=== PATIENT | female | born 1950 | race Caucasian/White ===

== ENCOUNTER → 2023-10-25 | Emergency (ER) | payer OTHER, BC ==
[~2023-10-25] MED LIST: KETOROLAC 30 MG/ML INJ ONE; ONDANSETRON 4 MG/2 ML VIAL ONE
--- NOTE | 2023-10-25 15:19 | RAD REPORT ---
EXAM DESCRIPTION: Shania Single View10/25/2023 3:06 pm CLINICAL HISTORY: epigastric pain;Cough COMPARISON: No comparisons TECHNIQUE: Portable AP view of the chest. FINDINGS: The lungs are clear. No pneumothorax or effusion. The cardiomediastinal contours are unre markable. IMPRESSION: No acute cardiopulmonary process.
--- NOTE | 2023-10-25 15:30 | RAD REPORT ---
EXAM DESCRIPTION: US - Abdomen Exam Limited - 10/25/2023 2:52 pm CLINICAL HISTORY: EPIGASTRIC PAIN COMPARISON: No comparisons TECHNIQUE: Sonographic grayscale and color flow images of the right upper abdominal quadrant were o btained. FINDINGS: The gallbladder demonstrates no gallstones. Small fold noted at the fundus. No pericholecy stic fluid or gallbladder wall thickening. The common bile duct is normal measuring 5mm. The liver demonstrates no findings of intrahepatic biliary dilatation. IMPRESSION: Unremarkable examination.
[2023-10-25 15:41] LABS: Absolute Lymphocytes (CBC) 1.1 K/uL (0.7-4.9); Hematocrit 41.2 % (36.0-45.0); Lymphocytes % 20.2 % (15.3-44.8); MCV 91.2 fL (80-100); Platelets 235 thou/uL (152-406); RBC Red Blood Cell Count 4.52 M/uL (3.86-4.86)
[2023-10-25 15:46] LABS: Protime INR 1.07
[2023-10-25 16:02] LABS: Albumin 3.8 g/dL (3.4-5.0); Bilirubin Direct 0.1 mg/dL (0-0.2); Bilirubin Indirect, Calculated 0.2 mg/dL (0.2-0.8); Bilirubin Total 0.3 mg/dL (0.2-1.0); Magnesium 2.4 mg/dL (1.6-2.4); Potassium 3.8 mEq/L (3.5-5.1); Protein, Total 7.4 g/dL (6.4-8.2); Troponin High Sensitivity 5.8 pg/mL (<58.9)
--- NOTE | 2023-10-25 17:10 | RAD REPORT ---
EXAM DESCRIPTION: CT - Chest For Pe Angio - 10/25/2023 4:33 pm CLINICAL HISTORY: back pain;Cough COMPARISON: No comparisons TECHNIQUE: Thin axial CT images of the chest were obtained following administration of 95 mL Isovue 370 IV contrast. Multiplanar reconstructions, and maximum intensity projection reconstructions were g enerated and reviewed. Exam utilizes a protocol for optimal evaluation of pulmonary arterial tree. All CT scans are performed using dose optimization technique as appropriate and may include automated exposure control or mA/KV adjustment according to patient size. FINDINGS: Pulmonary arteries are normal. No emboli or other suspicious finding. No acute or signific ant aorta findings. No mass or infiltrate in the lung parenchyma. Subsegmental platelike opacification more so on the rig ht lower lobe. Rounded 5-6 mm peripheral right lower lobe calcified granuloma. No pleural thickening or pleural effusion. No pneumothorax. No abnormal mediastinal or hilar masses or lymphadenopathy seen. No chest wall mass or abnormal axill iary lymphadenopathy. Sequelae of right total mastectomy and axillary dissection. IMPRESSION: No evidence of acute central pulmonary emboli. No other acute pulmonary process. Incidental findings as above. .
--- NOTE | 2023-10-25 17:26 | RAD REPORT ---
EXAM DESCRIPTION: CT - Abdomen Pelvis W Contrast - 10/25/2023 4:33 pm CLINICAL HISTORY: EPIGASTRIC PAIN COMPARISON: Chest For Pe Angio dated 10/25/2023 TECHNIQUE: Thin cut axial CT imaging of the abdomen and pelvis was performed following intravenous a dministration of 95 mL Isovue 370. Multiplanar reformats were generated and reviewed. All CT scans are performed using dose optimization technique as appropriate and may include automated exposure control or mA/KV adjustment according to patient size. FINDINGS: No suspicious findings in the lung bases. The liver, spleen, adrenal glands, and pancreas show no suspicious findings. Gallbladder and biliary tree are also without suspicious finding. Symmetric renal function is seen with no hydronephrosis or suspicious renal mass. Small left parapelv ic cysts. No dilated bowel loops or bowel wall thickening. No free air, free fluid or inflammatory stranding. N o hernia, mass or bulky lymphadenopathy. The urinary bladder is without significant finding. No suspicious bony findings. IMPRESSION: No acute intra-abdominal process.
--- NOTE | 2023-10-25 19:32 | EDPHYS ---
Physician Documentation [facility] Name: Radha Azevedo Age: 73 yrs Sex: Female : 1950 Arrival Date: 10/25/2023 Time: 13:56 Bed 10 Private MD: ED Physician Bennie Neff HPI: 10/25 14:20 This 73 yrs old Female presents to ER via Ambulatory with complaints of Chest Pain, cp Middle back pain. 14:20 The patient presents with pain that is acute, with no known mechanism of injury. The cp symptoms are located in the left subscapular area, right subscapular area and mid back area. Onset: The symptoms/episode began/occurred 1 week(s) ago. Associated signs and symptoms: Pertinent positives: epigastric and lower chest pain that started yesterday, Pertinent negatives: fever, weakness. 14:20 The problem was sustained from unknown cause. Modifying factors: the patient symptoms cp are aggravated by movement. 14:20 Severity of symptoms: in the emergency department the symptoms are unchanged, despite cp home interventions. Historical: - Allergies: 14:04 Amoxicillin; ap3 - PMHx: 14:04 breast cancer; ap3 - PSHx: 14:04 cardiac stents; mastectomy-right; ap3 - Immunization history:: Client reports receiving the 2nd dose of the Covid vaccine, Flu vaccine is not up to date. - Social history:: Smoking status: Patient denies any tobacco usage or history of. ROS: 14:25 Constitutional: Negative for body aches, chills, fever, poor PO intake, cp 14:25 Eyes: Negative for injury, pain, redness, and discharge, cp 14:25 ENT: Negative for drainage from ear(s), ear pain, sore throat, difficulty swallowing, difficulty handling secretions, 14:25 Cardiovascular: Positive for chest pain, Negative for edema, palpitations, 14:25 Respiratory: Positive for cough, Negative for shortness of breath, wheezing, 14:25 Abdomen/GI: Positive for abdominal pain, of the epigastric area, Negative for vomiting, diarrhea, constipation, 14:25 Back: Positive for pain at rest, pain with movement, of the left subscapular area, right subscapular area and mid back area, 14:25 Neuro: Negative for altered mental status, dizziness, headache, syncope, weakness, 14:25 All other systems are negative, Exam: 14:22 ECG was reviewed by the Attending Physician. cp 14:30 Constitutional: The patient appears in no acute distress, alert, awake, comfortable, cp non-diaphoretic, non-toxic, well developed, well nourished, 14:30 Head/Face: Normocephalic, atraumatic. cp 14:30 Eyes: Periorbital structures: appear normal, Conjunctiva: normal, no exudate, no injection, Sclera: no appreciated abnormality, Lids and lashes: appear normal, bilaterally, 14:30 ENT: External ear(s): are unremarkable, Nose: is normal, Mouth: Lips: moist, Oral mucosa: pink and intact, moist, Posterior pharynx: Airway: no evidence of obstruction, patent, 14:30 Neck: ROM/movement: is normal, is supple, without pain, no range of motions limitations, 14:30 Chest/axilla: Inspection: normal, 14:30 Cardiovascular: Rate: normal, Rhythm: regular, Edema: is not appreciated, JVD: is not appreciated, 14:30 Respiratory: the patient does not display signs of respiratory distress, Respirations: normal, no use of accessory muscles, no retractions, labored breathing, is not present, Breath sounds: are clear throughout, no decreased breath sounds, no stridor, no wheezing, 14:30 Abdomen/GI: Inspection: abdomen appears normal, Bowel sounds: active, all quadrants, Palpation: soft, in all quadrants, mild abdominal tenderness, in the epigastric area, rebound tenderness, is not appreciated, involuntary guarding, is not appreciated, 14:30 Back: pain, that is mild, of the left subscapular area, right subscapular area and mid back area, ROM is normal, 14:30 Neuro: Orientation: to person, place \T\ time. Mentation: is normal, Motor: moves all fours, strength is normal, Gait: is steady, Vital Signs: 14:03 BP 146 / 85; Pulse 68; Resp 17; Temp 97.5; Pulse Ox 98% ; Weight 79.38 kg; Height 5 ft. ap3 5 in. ; Pain 5/10; 17:23 BP 173 / 55; Pulse 61; Pulse Ox 99% ; jg11 20:00 BP 159 / 73; Pulse 65; Resp 16; Pulse Ox 100% ; Pain 0/10; nj1 14:03 Body Mass Index 29.12 (79.38 kg, 165.1 cm) ap3 14:03 Pain Scale: Adult ap3 20:00 Pain Scale: Adult nj1 MDM: 14:19 Patient medically screened. 15:00 Differential diagnosis: Abdominal Aortic Aneurysm Basilar Pneumonia Cholelithiasis cp Peptic Ulcer Perforated Ulcer Pyelonephritis Ureterolithiasis pancreatitis. 19:30 Data reviewed: vital signs, nurses notes, lab test result(s), EKG, radiologic studies, cp CT scan, plain films. 19:30 I considered the following discharge prescriptions or medication management in the emergency department Medications were administered in the Emergency Department. See MAR. Independent interpretation of the following test(s) in the Emergency Department EKG: See my EKG interpretation above. Care significantly affected by the following chronic conditions: Cancer. 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 Response to treatment: the patient's symptoms have markedly improved after treatment, and as a result, I will discharge patient. Special discussion: Based on the patient's history, exam, and Dx evaluation, there is no indication for emergent intervention or inpatient Tx. It is understood by the patient/guardian that if the Sx's persist or worsen they need to return immediately for re-evaluation. Based on the patient's Hx, exam, and Dx evaluation, there is no indication for emergent surgery or inpatient Tx. It is understood by the patient/guardian that if the Sx's persist or worsen they need to return immediately for re-evaluation. 10/25 14:13 Order name: Basic Metabolic Panel; Complete Time: 16:26 10/25 16:26 Interpretation: Normal except: ANION GAP 4.8; GFR 85. 10/25 14:13 Order name: CBC with Diff; Complete Time: 15:46 10/25 15:46 Interpretation: Reviewed. 10/25 14:13 Order name: LFT's; Complete Time: 16:26 cp 10/25 16:26 Interpretation: Normal except: GLOB 3.6. cp 10/25 14:13 Order name: Magnesium; Complete Time: 16:26 cp 10/25 14:13 Order name: NT PRO-BNP; Complete Time: 16:26 cp 10/25 14:13 Order name: PT-INR; Complete Time: 15:46 cp 10/25 14:13 Order name: Troponin HS; Complete Time: 16:26 cp 10/25 14:13 Order name: Lipase; Complete Time: 16:26 cp 10/25 17:50 Interpretation: Reviewed. cp 10/25 14:13 Order name: XRAY Chest (1 view); Complete Time: 15:46 cp 10/25 15:46 Interpretation: Report review. cp 10/25 14:13 Order name: US Abdomen Limited: gallbladder; Complete Time: 15:46 cp 10/25 15:47 Interpretation: Report reviewed. cp 10/25 15:48 Order name: CT Chest For PE Angio; Complete Time: 17:49 cp 10/25 15:48 Order name: CT Abd/Pelvis - IV Contrast Only; Complete Time: 17:49 cp 10/25 14:13 Order name: EKG; Complete Time: 14:14 cp 10/25 14:13 Order name: Cardiac monitoring; Complete Time: 18:50 cp 10/25 14:13 Order name: EKG - Nurse/Tech; Complete Time: 14:16 cp 10/25 14:13 Order name: IV Saline Lock; Complete Time: 16:59 cp 10/25 14:13 Order name: Labs collected and sent; Complete Time: 16:59 cp 10/25 14:13 Order name: O2 Per Protocol; Complete Time: 16:59 cp 10/25 14:13 Order name: O2 Sat Monitoring; Complete Time: 16:59 cp 10/25 14:13 Order name: NPO; Complete Time: 14:16 cp EC:22 Rate is 63 beats/min. Rhythm is regular. DC interval is normal. QRS interval is normal. cp QT interval is normal. T waves are Inverted in lead aVR. Interpreted by me. Reviewed by me. Administered Medications: 17:04 Drug: Ondansetron IVP 4 mg IVP once; over 2 minutes Route: IVP; Site: left antecubital; hb 18:32 Follow up: Response: No adverse reaction ap3 17:04 Drug: Ketorolac IVP 15 mg IVP once Route: IVP; Site: left antecubital; hb 18:33 Follow up: Response: No adverse reaction ap3 Disposition Summary: 10/25/23 19:32 Discharge Ordered Notes: Location: Home cp Problem: new cp Symptoms: have improved cp Condition: Stable cp Diagnosis - Dorsalgia, unspecified cp - Epigastric pain cp - Chest pain, unspecified cp Followup: cp - With: Simone Gonzalez MD - When: 1 week - Reason: Recheck today's complaints Discharge Instructions: - Abdominal Pain, Adult cp - Acute Back Pain, Adult cp - Nonspecific Chest Pain, Adult cp - Discharge Summary Sheet ap3 Forms: - Medication Reconciliation Form cp - Thank You Letter cp - Antibiotic Education cp - Prescription Opioid Use cp - Patient Portal Instructions cp - Leadership Thank You Letter cp - SBAR form ap3 Prescriptions: - Protonix 40 mg Oral Tablet - take 1 tablet ORAL route once daily; 30 tablet; Refills: 0, Product Selection cp Permitted Addendum: 10/27/2023 07:17 Co-signature as Attending Physician, Bennie Neff MD I reviewed the patient's care r n provided by the Advanced Practice Provider and agree with the diagnosis and treatment plan. Signatures: Dispatcher [employer] EDBennie Pugh MD MD rn Page, Corey, PA PA cp [place] Beckett RN RN hb Prokisch, Amanda, RN RN ap3 Corrections: (The following items were deleted from the chart) 10/26 06:06 10/25 14:20 Associated signs and symptoms: Pertinent positives: epigastric and lower cp chest pain, Pertinent negatives: fever, weakness, cp
--- NOTE | 2023-10-25 19:32 | ER ---
Nurse's Notes [facility] Name: Radha Azevedo Age: 73 yrs Sex: Female : 1950 Arrival Date: 10/25/2023 Time: 13:56 Bed 10 Private MD: Diagnosis: Dorsalgia, unspecified;Epigastric pain;Chest pain, unspecified Presentation: 10/25 14:03 Chief complaint: Patient states: she started having chest pain that radiates into her ap3 back yesterday 10/24/2023. patient rates the pain as a 5/10 at this time. patient denies nausea, vomiting and shortness of breath at this time. Coronavirus screen: At this time, the client does not indicate any symptoms associated with coronavirus-19. Ebola Screen: No symptoms or risks identified at this time. Initial Sepsis Screen: Does the patient meet any 2 criteria? No. Patient's initial sepsis screen is negative. Does the patient have a suspected source of infection? No. Patient's initial sepsis screen is negative. Risk Assessment: Do you want to hurt yourself or someone else? Patient reports no desire to harm self or others. Onset of symptoms was October 24, 2023. 14:03 Method Of Arrival: Ambulatory ap3 14:03 Acuity: VENKAT 2 ap3 Triage Assessment: 14:05 General: Appears in no apparent distress. Behavior is calm, cooperative, appropriate ap3 for age. Pain: Complains of pain in chest Pain radiates to back Pain currently is 5 out of 10 on a pain scale. Pain began gradually, 1 day ago. Neuro: Level of Consciousness is awake, alert, obeys commands, Oriented to person, place, time, situation, Appropriate for age. Cardiovascular: Patient's skin is warm and dry. Cardiovascular: Reports chest pain. Respiratory: Airway is patent Respiratory effort is even, unlabored, Respiratory pattern is regular, symmetrical. Historical: - Allergies: 14:04 Amoxicillin; ap3 - PMHx: 14:04 breast cancer; ap3 - PSHx: 14:04 cardiac stents; mastectomy-right; ap3 - Immunization history:: Client reports receiving the 2nd dose of the Covid vaccine, Flu vaccine is not up to date. - Social history:: Smoking status: Patient denies any tobacco usage or history of. Screenin:06 [facility] ED Fall Risk Assessment (Adult) History of falling in the last 3 months, ap3 including since admission No falls in past 3 months (0 pts). Abuse screen: Denies threats or abuse. Nutritional screening: No deficits noted. Tuberculosis screening: No symptoms or risk factors identified. Assessment: 17:10 Reassessment: Patient appears in no apparent distress at this time. Patient and/or hb family updated on plan of care and expected duration. Pain level reassessed. Patient is alert, oriented x 3, equal unlabored respirations, skin warm/dry/pink. 20:00 Reassessment: Patient appears in no apparent distress at this time. Patient is alert, nj1 oriented x 3, equal unlabored respirations, skin warm/dry/pink. Patient denies pain at this time. Patient states feeling better. Patient states symptoms have improved. Vital Signs: 14:03 BP 146 / 85; Pulse 68; Resp 17; Temp 97.5; Pulse Ox 98% ; Weight 79.38 kg; Height 5 ft. ap3 5 in. ; Pain 5/10; 17:23 BP 173 / 55; Pulse 61; Pulse Ox 99% ; jg11 20:00 BP 159 / 73; Pulse 65; Resp 16; Pulse Ox 100% ; Pain 0/10; nj1 14:03 Body Mass Index 29.12 (79.38 kg, 165.1 cm) ap3 14:03 Pain Scale: Adult ap3 20:00 Pain Scale: Adult nj1 ED Course: 13:59 Patient arrived in ED. im 14:04 Triage completed. ap3 14:06 Arm band placed on left wrist. ap3 14:06 Patient maintains SpO2 saturation greater than 95% on room air. ap3 14:08 Silvino Can PA is PHCP. cp 14:08 Bennie Neff MD is Attending Physician. cp 14:15 EKG done, by ED staff, reviewed by Bennie Neff MD. ap3 14:54 US Abdomen Limited: gallbladder In Process Unspecified. EDMS 15:08 XRAY Chest (1 view) In Process Unspecified. EDMS 15:29 Initial lab(s) drawn, by ca, sent to lab. Inserted saline lock: 22 gauge in left jg11 antecubital area, using aseptic technique. Blood collected. 16:35 CT Chest For PE Angio In Process Unspecified. EDMS 16:35 CT Abd/Pelvis - IV Contrast Only In Process Unspecified. EDMS 16:35 Minnie Lee, RN is Primary Nurse. ap3 18:59 Patient has correct armband on for positive identification. Bed in low position. Call ap3 light in reach. attendance clerk on. Pulse ox on. NIBP on. 19:31 Simone Gonzalez MD is Referral Physician. cp 20:00 Provided Education on: discharge instructions. nj1 20:00 No provider procedures requiring assistance completed. nj1 20:00 IV discontinued, intact, bleeding controlled. nj1 Administered Medications: 17:04 Drug: Ondansetron IVP 4 mg IVP once; over 2 minutes Route: IVP; Site: left antecubital; hb 18:32 Follow up: Response: No adverse reaction ap3 17:04 Drug: Ketorolac IVP 15 mg IVP once Route: IVP; Site: left antecubital; hb 18:33 Follow up: Response: No adverse reaction ap3 Medication: 20:09 VIS not applicable for this client. nj1 Outcome: 19:32 Discharge ordered by . cp 20:09 Discharged to home ambulatory, nj1 20:09 Condition: stable 20:09 Discharge instructions given to patient, Instructed on discharge instructions, follow up and referral plans. medication usage, Demonstrated understanding of instructions, follow-up care, medications, Prescriptions given X 1, 20:10 Patient left the ED. nj1 Signatures: Dispatcher [employer] EDOK Silvino Can PA PA cp Indiana Beckett RN RN Minnie Lee RN RN ap3 Jeannette Potter RN RN nj1 Ramona Mcnair Jordan jg11
[2023-10-26 01:01] VITALS: BP 159/73; TEMP 97.5; O2SAT 100
--- NOTE | 2023-10-28 17:01 | EKG ---
Test Date: 2023-10-25 Test Time: 14:13:51 [employer]: ALP MEASUREMENT RESULTS: Intervals: Rate: 63 CA: 140 QRSD: 82 QT: 430 QTc: 440 Rew: P: 2 CA: 140 QRS: -46 T: 49 INTERPRETIVE STATEMENTS: Sinus rhythm with premature atrial complexes Left anterior fascicular block Anterior infarct, age undetermined Abnormal ECG No previous ECG available for comparison Electronically Signed On 10-28-23 16:53:53 ICU MANAGER by Justin Bowers
== END ==
LOC: ER 13:56
DX: R07.9 Chest pain, unspecified (principal); M54.9 Dorsalgia, unspecified; R10.13 Epigastric pain; Z88.0 Allergy status to penicillin; Z95.5 Presence of coronary angioplasty implant and graft; Z85.3 Personal history of malignant neoplasm of breast; Z90.11 Acquired absence of right breast and nipple
CPT/HCPCS: 85025; 80048; 36415; 83735; 85610; 80076; 84484; 83690; 83880; 71275; 74177; 71045; 76705; 96375; 96374; 99285; Q9967; J2405; 93005

== ENCOUNTER 2023-11-21 12:00 | Day surgery (SDC) | payer OTHER, BC ==
[2023-11-20 09:19] LABS: Hematocrit 40.6 % (36.0-45.0); MCV 91.5 fL (80-100); Platelets 220 thou/uL (152-406); RBC Red Blood Cell Count 4.44 M/uL (3.86-4.86)
[2023-11-20 09:29] LABS: Protime INR 1.05
[2023-11-20 09:39] LABS: Potassium 4.2 mEq/L (3.5-5.1)
[2023-11-21] MEDS ORDERED: LIDOCAINE 1% 20 ML MDV ONE (15:38)
[2023-11-21] MEDS ORDERED: VERAPAMIL HCL 10 MG/4 ML VIAL IV ONE (15:38)
[2023-11-21] MEDS ORDERED: HEPA 1000U/500MLS 2,000 UNIT/1,000 ML BAG IV ONE (15:38)
[2023-11-21] MEDS ORDERED: FENTANYL CITR 100 MCG/2 ML ONE (15:39)
[2023-11-21] MEDS ORDERED: MIDAZOLAM HCL 2 MG/2 ML INJ ONE (15:39)
[2023-11-21] MEDS ORDERED: HEPARIN 5000 UNIT/ML 1 ML VIAL ONE (15:41)
[2023-11-21] MEDS ORDERED: REGADENOSON 0.4 MG/5 ML SYR IV ONE (16:26)
[2023-11-21] MEDS ORDERED: CLOPIDOGREL 75 MG TABLET ONE ×2 (17:08→17:14)
[2023-11-21] MEDS ORDERED: ASPIRIN 325 MG TAB ONE (17:09)
[2023-11-21 17:35] VITALS: TEMP 97.8
[2023-11-21 18:35] VITALS: O2SAT 96
[2023-11-21 19:35] VITALS: BP 129/59
--- NOTE | 2023-11-22 01:44 | OP ---
Date of Procedure: 11/21/2023 Surgeon: IESHA MARTIN Procedures Performed: 1.Selective coronary angiogram. 2.Left heart catheterization. 3.FFR of mid LAD, moderate stenosis, it was insignificant of 0.8. 4.PCI of proximal RCA, severe stenosis, used 2.5 x 12 mm Synergy drug-eluting stent. Indication: Chest pain with grossly abnormal stress test. Access: Right radial artery 6-[place], closed with TR band. Complications: None. Bleeding: Less than 50 mL. Anesthesia: Total sedation time was 1 hour. Description Of Procedure: After risks, benefits, and alternatives were explained, the patient agreed to procedure and signed informed consent. The patient was brought into the cardiac catheterization laboratory, prepped and draped in usual sterile fashion. Then, I accessed right radial artery using pediatric micropuncture kit, placed a 6-[place] sheath, took 5-[place] tiger 4 catheter into a ortic root, over a J-wire, across aortic valve, measured LVEDP. Pullback did not record any gradient and then engaged left main, took standard views, and then the RCA, took standard views and then gave systemic heparin to assure ACT level above 250 and using the [place] catheter, I took an FFR wire into the aortic root and pressures were equalized and then engaged the left main again and sent the wire to the LAD past the stenosis. FFR was performed using Lexiscan. It was insignificant of 0.86, pulle d the wire back, and there was no drift. Final angiogram was satisfactory and then I exchanged for 6 -[place] JR4 guide with side holes, engaged the RCA, took a run-through wire into the RCA vessel dista lly and using a 2.5 balloon, lesion was pre-dilated successfully and then I used 2.5 x 12 mm Synergy drug-eluting stent, overlapped with the original stent that the patient has with excellent results. Stent expanded very well, removed the wire, and final angiogram was satisfactory and removed the guid e and the sheath, and placed TR band with good hemostasis. Findings: 1.Left main, large and normal. 2.LAD; proximal segment is normal. Mid segment has a stent that is patent. In the mid portion of t he stent, there is focal 40% stenosis. FFR is -0.86. Rest of the LAD is normal. Diagonal branches with luminal irregularities. 3.Left circumflex, it is normal, normal OM branches. 4.RCA, there is dominant circulation. Moderate-size vessel, it has proximal 80% stenosis, status po st successful PCI as above. Then, there is widely patent stent in the distal RCA, it is normal. 5.Normal LVEDP at 5 mmHg. Conclusions: 1.Severe proximal RCA stenosis, status post successful PCI as above. 2.Moderate mid LAD stenosis with negative FFR of 0.86. 3.Normal LVEDP. Recommendation: Aspirin, Plavix, atorvastatin. Follow up in the office in 1 to 2 weeks post procedu re. SR/MODL Voice ID: [id number] Report ID: [id number]
== END 2023-11-21 19:26 | disposition home or self-care (01) ==
LOC: CCL 12:00
PROVIDERS: ATTEND Internal Medicine Interventional Cardiology
DX: I25.10 Atherosclerotic heart disease of native coronary artery without angina pectoris (principal); I10 Essential (primary) hypertension; E78.5 Hyperlipidemia, unspecified; Z79.899 Other long term (current) drug therapy; Z88.0 Allergy status to penicillin; Z91.09 Other allergy status, other than to drugs and biological substances
CPT/HCPCS: 85025; 80048; 36415; 85610; 85347 ×2; 85730; 93458; 76937; 93571; C1893; Q9967; C1725; C9600; J1644; J2785; J2001; J2250; J3010; C1769; 99152; 99153